=== PATIENT | female | born 1980 | race Caucasian/White ===

== ENCOUNTER 2017-08-13 11:13 | Emergency (ER) | payer BC, SELFPAY ==
[2017-08-13 11:35] VITALS: BP 108/74; PULSE 78; RESP 16; TEMP 36.4; O2SAT 100; BMI 24.0
--- NOTE | 2017-08-13 11:44 | HMH.EDUTC ---
[facility] [place] Disposition Clinical Impression: Epistaxis not due to trauma Disposition: Home, Self-Care Condition on Discharge: Good Additional Instructions: Go straight to [facility] to see Dr Urbina ENT Follow his instruction on treatment Follow up with family doctor as instructed and to ER for emergencies Referrals: Gissell Flor [Primary Care Provider] - Haseeb Urbina MD [Staff Physician] - 08/13/17 12:30 pm Forms: Work/School Release Time of Disposition: 11:54 Medical Decision Making - Medical Records Medical records reviewed: Yes: I reviewed the patient's medical records. - Neri Inquiry Pt receiving controlled substance: No Neri was queried for this patient: No Vital Signs: 08/13/17 11:35 Temperature 97.5 F L Temperature Source Temporal Artery Scan Pulse Rate [Right] 78 Respiratory Rate 16 Blood Pressure [Right Arm] 108/74 Blood Pressure Mean [Right Arm] 85 Blood Pressure Source [Right Arm] Automatic Cuff Blood Pressure Position [Right Arm] Sitting 02 Sat by Pulse Oximetry 100 Oxygen Delivery Method Room Air - Physician Consults Physician Consulted: Dr Urbina ENT Time: 11:51 Comment/Response: Spoke to [facility] and advised them of patient complaints of nose bleeds daily for last 4 days and advised to send patient to Clinic for evaluation now. Patient informed and agreed Patient to be sent to be seen and treated by ENT for Nose bleeds [facility] [place] HPI - General Stated complaint: nose bleeds since Thursday Time Seen by Provider: 08/13/17 11:40 Mode of Arrival: Ambulatory Source of Information: Patient Limitations: No Limitations Description of Symptoms (Recalled from Triage Doc. by RN): NOSE BLEEDS X4 DAYS HEENT Symptoms (Recalled from RN notes): Yes Resp Symptoms (Recalled from RN notes): No Skin Symptoms (Recalled from RN notes): No MS Symptoms (Recalled from RN notes): No Functional Status (Recalled from RN notes): N - History of Present Illness Provider Complaint: Patient state that she has been having nose bleeds on and off since Thursday State that she seen family doctor on Thursday and advised her that she could have busted a blood vessel but no bleeding while at the clinic. State that she has continued to have them once or twice daily since and this morning she has already had nose bleeds x 2 however it has stopped again prior to arrival - Related Data Home Medications Medication Instructions Recorded Confirmed No Known Home Medications [No 08/13/17 08/13/17 Known Home Medications] Allergies Allergy/AdvReac Type Severity Reaction Status Date / Time No Known Allergies Allergy Verified 08/13/17 11:38 - Worker's Comp Is this a Worker's Comp case?: No [facility] History I have reviewed the patient's past medical history: Yes - Social History Alcohol Intake: never - Psychiatric History Expresses thoughts of harming self/others: None Suicide Plan Description: No Plan ROS Obtained: Yes All systems reviewed & no additional complaints - ENT Ears, Nose, Mouth, and Throat: Reports epistaxis Physical Exam - General General appearance: alert, in no apparent distress - Expanded ENT Exam Nose exam: Present: other (Dried blood noted in and around nares) - Respiratory Respiratory exam: Present: normal lung sounds bilaterally. Absent: respiratory distress - Cardiovascular Cardiovascular exam: Present: regular rate - Abdominal Exam Abdominal exam: Present: soft, normal bowel sounds. Absent: distention, tenderness, guarding - Neurological Exam Neurological exam: Present: alert, oriented X3 - Other Other exam information: No active bleeding at this time
--- NOTE | 2017-08-13 11:48 | ED_ITS ---
[facility] [place] Clinical Impression: Epistaxis not due to trauma Disposition: Home, Self-Care Condition on Discharge: Good Additional Instructions: Go straight to [facility] to see Dr Uribna ENT Follow his instruction on treatment Follow up with family doctor as instructed and to ER for emergencies Referrals: Gissell Flor [Primary Care Provider] - Haseeb Urbina MD [Staff Physician] - 08/13/17 12:30 pm Forms: Work/School Release Time of Disposition: 11:54 Medical Decision Making - Medical Records Medical records reviewed: Yes: I reviewed the patient's medical records. - Neri Inquiry Pt receiving controlled substance: No Neri was queried for this patient: No Vital Signs: 08/13/17 11:35 Temperature 97.5 F L Temperature Source Temporal Artery Scan Pulse Rate [Right] 78 Respiratory Rate 16 Blood Pressure [Right Arm] 108/74 Blood Pressure Mean [Right Arm] 85 Blood Pressure Source [Right Arm] Automatic Cuff Blood Pressure Position [Right Arm] Sitting 02 Sat by Pulse Oximetry 100 Oxygen Delivery Method Room Air - Physician Consults Physician Consulted: Dr Urbina ENT Time: 11:51 Comment/Response: Spoke to [facility] and advised them of patient complaints of nose bleeds daily for last 4 days and advised to send patient to Clinic for evaluation now. Patient informed and agreed Patient to be sent to be seen and treated by ENT for Nose bleeds [facility] [place] - General Stated complaint: nose bleeds since Thursday Time Seen by Provider: 08/13/17 11:40 Mode of Arrival: Ambulatory Source of Information: Patient Limitations: No Limitations Description of Symptoms (Recalled from Triage Doc. by RN): NOSE BLEEDS X4 DAYS HEENT Symptoms (Recalled from RN notes): Yes Resp Symptoms (Recalled from RN notes): No Skin Symptoms (Recalled from RN notes): No MS Symptoms (Recalled from RN notes): No Functional Status (Recalled from RN notes): N - History of Present Illness Provider Complaint: Patient state that she has been having nose bleeds on and off since Thursday State that she seen family doctor on Thursday and advised her that she could have busted a blood vessel but no bleeding while at the clinic. State that she has continued to have them once or twice daily since and this morning she has already had nose bleeds x 2 however it has stopped again prior to arrival - Related Data Home Medications Medication Instructions Recorded Confirmed No Known Home Medications [No 08/13/17 08/13/17 Known Home Medications] Allergies Allergy/AdvReac Type Severity Reaction Status Date / Time No Known Allergies Allergy Verified 08/13/17 11:38 - Worker's Comp Is this a Worker's Comp case?: No [facility] History I have reviewed the patient's past medical history: Yes - Social History Alcohol Intake: never - Psychiatric History Expresses thoughts of harming self/others: None Suicide Plan Description: No Plan ROS Obtained: Yes All systems reviewed & no additional complaints - ENT Ears, Nose, Mouth, and Throat: Reports epistaxis Physical Exam - General General appearance: alert, in no apparent distress - Expanded ENT Exam Nose exam: Present: other (Dried blood noted in and around nares) - Respiratory Respiratory exam: Present: normal lung sounds bilaterally. Absent: respiratory distress
[2017-08-13 11:56] VITALS: BP 108/74; PULSE 78; RESP 16; TEMP 36.4
== END 2017-08-13 11:58 | disposition home or self-care (01) ==
PROVIDERS: Emergency Provider Nurse Practitioner; Family Provider Family Medicine; PCP Family Medicine
DX: R04.0 Epistaxis (principal)
CPT/HCPCS: 99201

== ENCOUNTER 2020-04-29 17:57 | Emergency (ER) | payer BC, SELFPAY ==
[2020-04-29 18:24] VITALS: BP 138/95; PULSE 75; RESP 20; O2SAT 98; BMI 24.0
--- NOTE | 2020-04-29 18:30 | HMH.EDUTC ---
[facility] [place] Disposition Clinical Impression: Exposure to COVID-19 virus Disposition: Home, Self-Care Condition on Discharge: Good Instructions: Preventing the Spread of Coronavirus Discharge Instructions Additional Instructions: You have been tested for COVID19. These test results should be available in 24-48 hours. Referrals: PCP,No [Non-Staff] - Time of Disposition: 18:32 Medical Decision Making - Neri Inquiry Pt receiving controlled substance: No Vital Signs: 04/29/20 18:24 Pulse Rate [Radial] 75 Respiratory Rate 20 Blood Pressure [Right Arm] 138/95 H Blood Pressure Mean [Right Arm] 109 Blood Pressure Source [Right Arm] Automatic Cuff Blood Pressure Position [Right Arm] Sitting 02 Sat by Pulse Oximetry 98 Oxygen Delivery Method Room Air Orders (Tests/Meds): ORDERS Category Date Time Status Covid-19 Nasal PCR Sendout [facility] 04/29/20 18:20 Received [facility] [place] HPI - General Stated complaint: covid test Time Seen by Provider: 04/29/20 18:30 Mode of Arrival: Ambulatory Source of Information: Patient Limitations: No Limitations Description of Symptoms (Recalled from Triage Doc. by RN): covid test HEENT Symptoms (Recalled from RN notes): No Resp Symptoms (Recalled from RN notes): No Skin Symptoms (Recalled from RN notes): No MS Symptoms (Recalled from RN notes): No Functional Status (Recalled from RN notes): wnl - History of Present Illness Provider Complaint: Cough, runny nose X 2 days. No fever. No loss of taste or smell. Needs COVID test before returning to work. Onset (ago): day(s) (2) Relieving factors: none Exacerbating factors: none Associated symptoms: denies other symptoms Treatments prior to arrival: none - Related Data Home Medications Medication Instructions Recorded Confirmed No Known Home Medications 08/13/17 08/13/17 Allergies Allergy/AdvReac Type Severity Reaction Status Date / Time No Known Allergies Allergy Verified 08/13/17 12:52 - Worker's Comp Is this a Worker's Comp case?: No [facility] History - Hepatitis A Screen Drug use history?: No High risk sexual behaviors?: No History of sexually transmitted infection?: No Currently employed?: No Childcare worker?: No Do you have indoor plumbing?: Yes Do you have electricity?: Yes Attestation statement:: This patient has been screened for Hepatitis A risk factors. 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: Other Comment: breast reduction - Social History Smoking Status: Never smoker Alcohol Intake: never Substance Use Type: denies use Occupational Status: employed ROS Obtained: Yes All systems reviewed & no additional complaints - Constitutional Constitutional: Reports headache(s) - ENT Ears, Nose, Mouth, and Throat: Reports nasal congestion Physical Exam - General General appearance: alert, in no apparent distress - Head Head exam: atraumatic, normocephalic, normal inspection - Eye Eye exam: Present: normal appearance, PERRL, EOMI - ENT ENT exam: Present: normal exam, normal oropharynx, mucous membranes moist, TM's normal bilaterally, normal external ear exam - Neck Neck exam: Present: normal inspection, full ROM, trachea midline. Absent: meningismus, lymphadenopathy - Chest Chest inspection: Present: normal inspection, symmetric chest wall rise. Absent: tenderness - Respiratory Respiratory exam: Present: normal lung sounds bilaterally. Absent: respiratory distress - Cardiovascular Cardiovascular exam: Present: regular rate, normal rhythm. Absent: JVD - Extremities Exam Extremities exam: Present: normal inspection, full ROM, normal capillary refill. Absent: calf tenderness - Neurological Exam Neurological exam: Present: alert, oriented X3 - Psychiatric Psychiatric exam: Present: normal affect, normal mood - Skin Skin exam: Present: warm, dry, i
[2020-04-29 18:49] VITALS: BP 138/95; PULSE 75; RESP 20; TEMP 36.7; O2SAT 98
== END 2020-04-29 18:50 | disposition home or self-care (01) ==
PROVIDERS: Emergency Provider Physician Assistant; PCP Family Medicine
DX: Z20.828 Contact with and (suspected) exposure to other viral communicable diseases (principal); R05 Cough
CPT/HCPCS: 99201; U0003

== ENCOUNTER 2022-05-21 09:37 | Outpatient (RCR) | payer BC, SELFPAY | END 2022-05-21 09:40 | disposition home or self-care (01) | LOC: PT 09:37 | PROVIDERS: PCP Family Medicine; Visit Provider Nurse Practitioner Family | DX: M25.512 Pain in left shoulder (principal) | CPT/HCPCS: 97163 ==